=== PATIENT | female | born 1970 ===

== ENCOUNTER → 2018-01-03 | Outpatient (CLI) | payer OTHER ==
--- NOTE | 2018-01-11 16:40 | RAD ---
DATE: 01/03/2018 EXAM: DIGITAL SCREEN BILAT W/CAD HISTORY: Routine screening COMPARISON: 05/24/2015 This study was interpreted with the benefit of Computerized Aided Detection (CAD). Breast Density: SCATTERED The breast parenchyma shows scattered fibroglandular densities. Breast parenchyma level B. FINDINGS: A small asymmetric density is seen medially in the right breast on the cc view. It is not clearly visualized on the oblique view but may lie at the 2-3:00 location. No other new or enlarging breast densities are seen. Minimal benign type calcifications are noted. No suspicious microcalcifications have developed. IMPRESSION: Possible right breast nodule. Spot compression CC, straight mediolateral and possibly tomosynthesis imaging is suggested for further evaluation. If a nodule is confirmed mammographically, right breast ultrasound would then be indicated. BI-RADS CATEGORY: 0 INCOMPLETE: NEEDS ADDITIONAL IMAGING EVALUATION AND/OR PRIOR MAMMOGRAMS FOR COMPARISON. RECOMMENDED FOLLOW-UP: ADD ADDITIONAL IMAGING PQRS compliance statement: Patient information was entered into a reminder system with a target due date for the next mammogram. Mammography is a sensitive method for finding small breast cancers, but it does not detect them all and is not a substitute for careful clinical examination. A negative mammogram does not negate a clinically suspicious finding and should not result in delay in biopsying a clinically suspicious abnormality. "Our facility is accredited by the [employer] Mammography [employer]."
== END | disposition home or self-care (01) ==
LOC: MAMMO 08:49
DX: Z12.31 Encounter for screening mammogram for malignant neoplasm of breast (principal)
CPT/HCPCS: 77067

== ENCOUNTER → 2018-01-31 | Outpatient (CLI) | payer OTHER ==
--- NOTE | 2018-02-01 09:30 | RAD ---
ATE: 01/31/2018 3:00 PM EXAM: DIGITAL DIAGNOSTIC RT BREAST, RIGHT BREAST ULTRASOUND HISTORY: further evaluation of a finding noted on her most recent screening mammographic examination. On that examination a mass was reported within the right medial breast. COMPARISON: 01/03/2018, 05/24/2015, 08/15/2013 3-D tomographic images of the right breast in CC and MLO ureter obtained as well as 2-D spot compression views of the right breast. This study was interpreted with the benefit of Computerized Aided Detection (CAD ). Breast Density: The breast parenchyma shows scattered fibroglandular densities. Breast parenchyma level B. FINDINGS: The nodular mass in the slightly medial right breast is again seen, further delineated by the spot compression views. This was further evaluated with ultrasound. ULTRASOUND TECHNIQUE: Grayscale and color Doppler sonographic evaluation of the right breast was performed. ULTRASOUND FINDINGS: Targeted ultrasound of the mammographic area of concern was performed. 1:00 position, 5 cm from the nipple: A hypoechoic irregular mass and non circumscribed margins is present measuring 0.7 x 0.6 x 0.7 cm. IMPRESSION: Right breast mass, findings for which tissue sampling is advised. BI-RADS CATEGORY: 4 SUSPICIOUS ABNORMALITY- BIOPSY SHOULD BE CONSIDERED RECOMMENDED FOLLOW-UP: BIO BIOPSY RECOMMENDED ultrasound-guided biopsy is recommended. The findings of the right breast mass were discussed with the patient as well as the referring provider's nurse Kiley Cowan, 3:12 pm 01/31/2018. PQRS compliance statement: Patient information was entered into a reminder system with recommendation of immediate follow-up and biopsy Mammography is a sensitive method for finding small breast cancers, but it does not detect them all and is not a substitute for careful clinical examination. A negative mammogram does not negate a clinically suspicious finding and should not result in delay in biopsying a clinically suspicious abnormality. "Our facility is accredited by the [employer] Mammography [employer]." [facility]
== END | disposition home or self-care (01) ==
LOC: US 13:04
DX: N63.12 Unspecified lump in the right breast, upper inner quadrant (principal)
CPT/HCPCS: 76641; 77065